=== PATIENT | male | born 1960 | race Caucasian/White ===

== ENCOUNTER 2025-08-15 07:56 | Outpatient (CLI) | payer MEDICARE, SELFPAY ==
--- NOTE | ~2025-08-15 | CT_ITS ---
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 TECHNIQUE: IV contrast enhanced CT of the chest abdomen and pelvis performed. FINDINGS: 6 x 4 mm right upper lobe nodule image 65 series 3. 5 x 4 mm subpleural nodule right lower lobe image 81 series 3. The lungs are clear with no other nodules or masses consolidations or effusions. Heart and great vessels appear normal. No bulky mediastinal or hilar lymphadenopathy or masses. Thoracic bony structures appear intact. Within the abdomen and pelvis, right sided nephrectomy changes. 2 small simple appearing left renal cysts present with the largest along the medial margin of the lower pole measuring 1.3 cm. No hydroureteronephrosis. Urinary bladder unremarkable for technique. Prostate moderately enlarged. No AAA or grossly inflamed appendix. Gallbladder pancreas spleen stomach and adrenal glands appears normal. Bones appear intact. No bulky mesenteric or retroperitoneal lymphadenopathy or masses seen. IMPRESSION: 1. 2 subcentimeter lung nodules on the right side as detailed above. Given history provided, consider short interval follow-up chest CT or if clinically appropriate PET/CT. 2. No other evidence of metastatic or recurrent malignant disease in the chest abdomen or pelvis. 3. No gross lymphadenopathy identified. Correlate with any previous imaging, and continued surveillance recommended as clinically appropriate. Reviewed, dictated and finalized at location A. ROPATHIC ONCOLOGY PROVIDER IMPRESSION: 1. 2 subcentimeter lung nodules on the right side as detailed above. Given hist ory provided, consider short interval follow-up chest CT or if clinically appro priate PET/CT. 2. No other evidence of metastatic or recurrent malignant disease in the chest abdomen or pelvis. 3. No gross lymphadenopathy identified. Correlate with any previous imaging, an d continued surveillance recommended as clinically appropriate.
--- OUTSIDE RECORDS SUMMARY | 2025-08-15 08:03 | XMS_ITS | Encounter Summary ---
Author Organization [facility] Address [facility] [place] [address] Care Team Providers Care Media Specialist Name Role Phone Mathieu Mejia MD Primary Care Provider [phone] Encounter Details Date Type Department Care Team (Late st Contact Info) Description 02/05/2021 Prep for Procedure [facility] Pre-Admission Testing [facility] [address] [place], [place] [id number] Alex Carvalho MD [address] [facility] [address] [place], [place] [id number] Social History Tobacco Use Types Packs/Day Years Used Date Smoking Tobacco: Every Day Cigarettes 1 48 Smokeless Tobacco: Never Alcohol Use Standard Drinks/Week Comments No 0 (1 standard drink = 0.6 oz pur e alcohol) Sex and Gender Information Value Date Recorded Sex Assigned at Not on file Legal Sex Male 8:06 PM CDT Gender Identity Not on file Sexual Orientation Not on file COVID-19 Exposure Response Date Recorded In the last month, have you been in contact with someone who was confirmed or suspected to have Coronavirus / COVID-19? No / Unsure 02/05/2021 8:50 AM CDT documented as of this encounter Plan of Treatment Not on file documented as of this encounter Visit Diagnoses Diagnosis Pre-op exam- Primary Preoperative examination, unspecified documented in this encounter Additional Health Concerns Infection Onset Date Last Indicated Resolved Time COVID-19 Rule Out 02/09/2021 02/09/2021 02/09/2021 8:11 AM CDT COVID-19 Rule Out 02/11/2021 02/11/2021 02/12/2021 12:12 PM CDT documented as of this encounter Care Teams Media Specialist Relationship Specialty Start Date End Date Mathieu Mejia MD PCP - General INTERNAL MEDICINE 10/15/17 documented as of this encounter
--- OUTSIDE RECORDS SUMMARY | 2025-08-15 08:03 | XMS_ITS | Clinical Summary ---
Author Organization [facility] Address [facility] [place] [address] Care Team Providers Care Drywall Boardhanger Name Role Phone Mathieu Mejia MD Primary Care Provider [phone] Allergies Active Allergy Reactions Criticality Noted Date Comments Codeine Hallucinations 10/15/2017 Medications apixaban 5 MG tablet Take 1 tablet by mouth daily. Active LORazepam 0.5 MG tablet Take 0.5 mg by mouth 2 (two) times daily as needed. Active HYDROcodone-acet aminophen 5-325 MG tabletIndication s:Acute Pain < 7 Day Supply Take 1 tablet by mouth every 6 (six) hours as needed for Pain. Indications : Acute Pain < 7 Day Supply 28 tablet 02/13/2021 Active Active Problems Problem Noted Date Diagnosed Date Hydrocele in adult 02/13/2021 Family History Medical History Relation Comments Kidney Disease Brother s/p kidney trans plant Cancer Father colon, bladder m ets Relation Status Comments Brother Daughter Alive Father Mother Son Alive Social History Tobacco Use Types Packs/Day Years [...] on file Sexual Orientation Not on file Last Filed Vital Signs Vital Sign Reading Time Taken Comments Blood Pressure 106/57 02/13/2021 12:30 PM CDT Pulse 51 02/13/2021 12:30 PM CDT Temperature 36.2 C (97.2 F) 02/13/2021 12:30 PM CDT Respiratory Rate 18 02/13/2021 12:30 PM CDT Oxygen Saturation 96% 02/13/2021 12:30 PM CDT Inhaled Oxygen Concentration - - Weight 71.4 kg (157 lb 6.5 oz) 02/13/2021 7:45 A M CDT Height 182.9 cm (6') 02/05/2021 8:00 AM CDT Body Mass Index 21.35 02/05/2021 8:00 AM CDT Plan of Treatment Health Maintenance Due Date Last Done Comments Colorectal Cancer Screening Colonoscopy (10 Years) 1960 Hepatitis C 1977 DTaP, Tdap and Td Vaccines ( 1 - Tdap) 1978 Pneumococcal Vaccine: 50+ Ye ars (1 of 2 - PCV) 1978 Zoster Vaccines (1 of 2) 2009 COVID-19 Vaccine ( - 2024-2 6 season) 2025 Influenza Adult (#1) 2025 RSV Immunization or 60+ Years (1 - 1-dose 75+ series) 2034 Hepatitis A Vaccines Aged Out No long er eligible based on patient's age to complete this topic Meningococcal B Vaccine Aged Out No l onger eligible based on patient's age to complete this topic Meningococcal Vaccine Aged Out No corinne ely eligible based on patient's age to complete this topic RSV Immunizations Under 20 Months Aged Out No longer eligible based on patient's age to complete this topic Insurance Care Teams Drywall Boardhanger Relationship Specialty Start Date End Date Mathieu Mejia MD [phone] (work) PCP - General INTERNAL MEDICINE 10/15/17
[2025-08-15 08:26] LABS: Estimated Glomerular Filt Rate 51
== END 2025-08-15 07:57 | disposition home or self-care (01) ==
PROVIDERS: PCP Internal Medicine; Visit Provider Internal Medicine Medical Oncology
DX: C64.1 Malignant neoplasm of right kidney, except renal pelvis (principal); C77.1 Secondary and unspecified malignant neoplasm of intrathoracic lymph nodes; R91.8 Other nonspecific abnormal finding of lung field
CPT/HCPCS: 71260; 74177; Q9967